=== PATIENT | male | born 1975 | race African-American/Black ===

== ENCOUNTER 2020-10-17 10:53 | Emergency (ER) | payer OTHER, SELFPAY ==
--- NOTE | ~2020-10-17 | XR_ITS ---
EXAMINATION: XR lumbar spine 2-3V EXAM DATE: 10/17/2020 11:50 INDICATION: No known recent injury provided at this time. Pain of the low back. TECHNIQUE: Lumber spine frontal, lateral, lateral L5-S1 projections for interpretation. There is no prior study for comparison. FINDINGS: There is mild to moderate lumbar levoscoliosis. No spondylolysis. Straightening of normal lumbar lordosis. The vertebral bodies are aligned in the AP dimension. Mild disc disease at L4-5 and L5-S1. Mild lumbar facet arthropathy. Sacrum, sacroiliac joints, sacral arcuate lines are intact. Elvin cifications in the pelvis are believed to be phleboliths. IMPRESSION: 1. Mild to moderate lumbar levoscoliosis. 2. Mild spondylosis. Reviewed, dictated and finalized at location [facility] [employer]
[2020-10-17 11:32] VITALS: BP 139/100; PULSE 87; RESP 20; TEMP 36.9; O2SAT 99
--- NOTE | 2020-10-17 11:56 | PC.NURSE ---
pt refusing blood work
--- NOTE | 2020-10-17 12:01 | PC.NURSE ---
PT REFUSING TO HAVE HIS BLOOD DRAWN AT THIS TIME.
--- NOTE | 2020-10-17 12:32 | ED.GENADULT ---
HPI - General Adult General Chief complaint: Back Pain/Injury Stated complaint: back pain, hx spinal abcess Time Seen by Provider: 10/17/20 12:30 History of Present Illness HPI narrative: Brought in from home by police for medical clearance. He reported back pain and history of spinal abscess during triage. He did not mention this to me, but said that he has not felt well for a long time and has not been eating well. He report constant chest discomfort. He allowed them to obtain an x-ray of the lumbar spine. He is refusing any further testing at this time. Review of Systems Review of Systems: All systems reviewed & are unremarkable except as noted in HPI and below Constitutional: Constitutional: Reports chills, Reports fatigue and Reports fever(s) Cardiovascular: Cardiovascular: Reports chest pain Respiratory: Respiratory: Denies cough and Denies dyspnea Gastrointestinal: Gastrointestinal: Denies vomiting Musculoskeletal: Musculoskeletal: Reports back pain Neurologic: Reports dizziness PMFSH Past Medical History Medical History (Updated 10/17/20 @ 12:44 by Silas Whiteside MD) Spinal abscess Social History Social History (Updated 10/17/20 @ 12:39 by Silas Whiteside MD) Substance use type: heroin Exam Const: General: no acute distress and ill appearing chronically Orientation/consciousness: patient oriented x3 HENMT: Head: normal to inspection Eyes: Pupils: Equal, round and reactive pupils present Chest: Chest palpation & inspection: normal inspection of the chest Resp: Effort & Inspection: normal respiratory effort Auscultation: clear to auscultation bilaterally Cardio: Rate: regular rate Rhythm: regular rhythm GI: GI Palp: Yes Soft to palpation and No Guarding due to palpation present (GI) Skin: General skin exam: normal color Neuro: General: patient oriented x3, moves all extremities and CN's II-XI intact bilaterally Speech: normal speech Extrem: General: edema bilateral (trace) Course Vital Signs Vital signs: Vital Signs Temperature 36.9 C 10/17/20 11:32 Pulse Rate 87 10/17/20 11:32 Respiratory Rate 10/17/20 11:32 Blood Pressure 139/100 H 10/17/20 11:32 Pulse Oximetry 99 10/17/20 11:32 Temperature 36.9 C 10/17/20 11:32 Pulse Rate 87 10/17/20 11:32 Respiratory Rate 10/17/20 11:32 Blood Pressure 139/100 H 10/17/20 11:32 Pulse Oximetry 99 10/17/20 11:32 Medical Decision Making MDM Narrative Medical decision making narrative: He appears chronically unwell. No obvious acute issues. He is not allowing further work-up. Medical Records Medical records reviewed: Yes I reviewed the patient's medical records. Vital Signs Vital Signs: Vital Signs Temperature 36.9 C 10/17/20 11:32 Pulse Rate 87 10/17/20 11:32 Respiratory Rate 20 10/17/20 11:32 Blood Pressure 139/100 H 10/17/20 11:32 Pulse Oximetry 99 10/17/20 11:32 Temperature 36.9 C 10/17/20 11:32 Pulse Rate 87 10/17/20 11:32 Respiratory Rate 20 10/17/20 11:32 Blood Pressure 139/100 H 10/17/20 11:32 Pulse Oximetry 99 10/17/20 11:32 Discharge Plan Discharge Clinical Impression: Malaise and fatigue Patient Disposition: Home, Self-Care Condition: Stable Instructions: Fatigue (ED) Follow-up/Referrals: PHYSICIAN,INTERNAL COMBUSTION ENGINE ASSEMBLER [Primary Care Provider] -
[2020-10-17 13:14] VITALS: BP 150/109; PULSE 81; RESP 18; O2SAT 100
== END 2020-10-17 13:21 | disposition home or self-care (01) ==
PROVIDERS: Emergency Provider Emergency Medicine
DX: R53.81 Other malaise (principal); R53.83 Other fatigue; M47.816 Spondylosis without myelopathy or radiculopathy, lumbar region
CPT/HCPCS: 72100; 99283

== ENCOUNTER 2020-12-25 01:15 | Emergency (ER) | payer OTHER, SELFPAY ==
[2020-12-25 01:16] VITALS: BP 165/118; PULSE 90; RESP 12; TEMP 36.9; O2SAT 100
--- NOTE | 2020-12-25 01:26 | PC.NURSE ---
when asking pt to describe his pain, pt seen falling asleep. md notified.
[2020-12-25 02:39] VITALS: BP 166/105; PULSE 93; RESP 18; O2SAT 99
--- NOTE | 2020-12-25 02:47 | ED.GENADULT ---
HPI - General Adult General Chief complaint: Unspecified Stated complaint: pain all over Time Seen by Provider: 12/25/20 01:19 History of Present Illness HPI narrative: Patient is a 45-year-old male who presents ER with complaints of upper back pain and some intermittent tingling in his arms and legs. Symptoms have been progressing over the last 2 days. Patient reports history of chronic back pain and discomfort related to a spinal epidural abscess that had to be drained last year. He reports that the pain increasing his him nervous that he may have recurrence. He has no fevers or chills or sweats. No body aches. The tingling goes into his fingers #3 through 5 in bilateral hands. Cannot describe aggravating or alleviating factors. He does report that is intermittent. Notices no improvement when he takes his Percocet. He has had no drainage from the surgical site or breakdown in the scar that he is aware of. He does not use any intravenous drugs. 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 Patient denies any infections currently on his skin or in his mouth. Review of Systems Review of Systems: All systems reviewed & are unremarkable except as noted in HPI and below Constitutional: Constitutional: Denies chills, Denies fatigue and Denies fever(s) ENT: Denies mouth lesions, Denies nasal congestion, Denies sinus pressure and Denies sore throat Respiratory: Respiratory: Denies cough and Denies dyspnea Gastrointestinal: Gastrointestinal: Denies abdominal pain, Denies nausea and Denies vomiting Musculoskeletal: Musculoskeletal: Reports back pain, Denies muscle cramps, Denies muscle weakness and Denies stiffness Integumentary/Breasts: Skin/Breast: Denies erythema, Denies rash, Denies skin ulcer and Denies sores Neurologic: Denies focal weakness, Reports tingling and Reports paresthesias PMF Past Medical History Medical History (Updated 12/25/20 @ 02:55 by Lukas Abebe MD) Spinal abscess Social History Social History (Updated 12/25/20 @ 02:50 by Lukas Abebe MD) Social History: Denies current IV drug use. Substance use type: heroin Exam Narrative: Exam Narrative: GENERAL: Chronically ill-appearing, then, and in no acute distress. HEAD: Normocephalic, atraumatic. NECK: Supple. Posterior cervical spine with scar from previous surgery that is nontender without any evidence of infection. Near C7/T1 there is to some very small red 3 mm spots that looks like patient may have picked or scratched the scar. No drainage or fluctuance. CHEST: Clear to auscultation. No respiratory distress. HEART: Regular rate and rhythm. Normal peripheral pulses. ABDOMEN: Soft, nontender, nondistended. Back: No midline tenderness of the thoracic or lumbar spine. No tenderness over the surgical scar of thoracic spine. No paraspinal muscular tenderness noted. No visual evidence of infection including rash/redness/pustules. EXTREMITIES: Normal range of motion. No edema. SKIN: Warm, dry, no rash. NEURO: Sharp and soft touch intact in the hands bilaterally. Alert and oriented x3. Course Course Emergency Course: Discussed with the patient that we would like to perform blood work to evaluate him for potential infectious cause given that is his concern. Discussed that we would not be able to perform emergent ER MRI as that is not something available in the ER and MRIs are typically scheduled. Discussed that should lab work be abnormal and he has persistent tingling despite being free of tingling at this time he may necessitate transfer to another facility because they would likely want to have their own MRI images for their neurosurgeons to look at if there is truly an infection. Patient reports that he would not like to have care performed at this hospital. He reports that he is a very tough stick that typically requires an ult
[2020-12-25 03:24] VITALS: BP 152/100; PULSE 90; RESP 18; O2SAT 96
== END 2020-12-25 03:25 | disposition home or self-care (01) ==
PROVIDERS: Emergency Provider Emergency Medicine
DX: M54.6 Pain in thoracic spine (principal); R20.2 Paresthesia of skin; Z86.14 Personal history of Methicillin resistant Staphylococcus aureus infection
CPT/HCPCS: 99281